=== PATIENT | male | born 1975 | race Caucasian/White ===

== ENCOUNTER 2022-12-23 02:46 | Outpatient (RCR) | payer BC, SELFPAY ==
[2022-12-04] MEDS: Normal Saline Flush 10 ML SYR IVP (10:42)
[2022-12-04 11:04] LABS: HCT 37.4 % (40.0-50.0); HGB 12.6 g/dL (13.5-17.5); MCH 30.4 pg (27.0-33.0); MCHC 33.7 % (32.0-36.0); MCV 90 fL (80-95); MPV 10.2 fL (8.0-11.0); Platelet Count 132 10^3/uL (130-400); RBC 4.15 10^6/uL (4.36-5.78); RDW 14.6 % (11.8-14.1); RDW-SD 48.1 fL; WBC 9.15 10^3/uL (4.4-10.8)
[2022-12-04 11:17] LABS: ALT 30 U/L (16-63); AST 15 U/L (15-37); Albumin 3.7 g/dL (3.4-5.0); Alkaline Phosphatase 99 U/L (46-116); Anion Gap 7.9 mmol/L (3-11); BUN 36 mg/dL (7-18); Bilirubin, Total 0.6 mg/dL (0.2-1.0); CO2 28.1 mmol/L (21.0-32.0); CREATININE 1.2 mg/dL (0.70-1.30); Calcium 8.2 mg/dL (8.5-10.1); Chloride 103 mmol/L (98-107); Estimated GFR 75.06 (mL/min/1.73m2); Glucose 156 mg/dL (74-106); LDH 468 U/L (85-227); Potassium 3.5 mmol/L (3.5-5.1); Sodium 139 mmol/L (136-145); Total Protein 6.8 g/dL (6.4-8.2)
[2022-12-04 11:23] LABS: Absolute Basophil Count 0.18 10^3/uL (0.0-0.2); Absolute Lymphocyte Count 3.02 10^3/uL (1.2-3.4); Absolute Monocyte Count 0.64 10^3/uL (0.1-0.8); Absolute Neutrophil Count 5.31 10^3/uL (1.2-6.7); Atypical Lymphocytes % 2; Diff Comment Manual Differential; RBC Morphology Normal
[2022-12-09] MEDS: Normal Saline Flush 10 ML SYR IVP (07:14)
[2022-12-09 07:57] LABS: Abs Immature Grans 0.06 10^3/uL (0.0-0.06); Absolute Basophil Count 0.05 10^3/uL (0.0-0.2); Absolute Lymphocyte Count 0.03 10^3/uL (1.2-3.4); Absolute Monocyte Count 0.19 10^3/uL (0.1-0.8); Absolute Neutrophil Count 6.52 10^3/uL (1.2-6.7); Basophils % 0.7; HCT 33.4 % (40.0-50.0); HGB 11.3 g/dL (13.5-17.5); Immature Grans % 0.9; Lymphocytes % 0.4; MCH 30.6 pg (27.0-33.0); MCHC 33.8 % (32.0-36.0); MCV 91 fL (80-95); MPV 9.9 fL (8.0-11.0); Monocytes % 2.8; Neutrophils % 95.2; Platelet Count 153 10^3/uL (130-400); RBC 3.69 10^6/uL (4.36-5.78); RDW 14.5 % (11.8-14.1); RDW-SD 47.8 fL; WBC 6.85 10^3/uL (4.4-10.8)
[2022-12-09 08:11] LABS: ALT 29 U/L (16-63); AST 18 U/L (15-37); Albumin 3.4 g/dL (3.4-5.0); Alkaline Phosphatase 70 U/L (46-116); Anion Gap 6.2 mmol/L (3-11); BUN 28 mg/dL (7-18); Bilirubin, Total 0.5 mg/dL (0.2-1.0); CO2 29.8 mmol/L (21.0-32.0); CREATININE 1.3 mg/dL (0.70-1.30); Calcium 8.5 mg/dL (8.5-10.1); Chloride 101 mmol/L (98-107); Estimated GFR 68.19 (mL/min/1.73m2); Glucose 114 mg/dL (74-106); LDH 309 U/L (85-227); Potassium 3.5 mmol/L (3.5-5.1); Sodium 137 mmol/L (136-145); Total Protein 6.7 g/dL (6.4-8.2)
[2022-12-11 16:41] LABS: CMV DNA Detect/Quant, P Undetected IU/mL (Undetected)
[2022-12-16] MEDS: Normal Saline Flush 10 ML SYR IVP (07:37)
[2022-12-16 07:50] LABS: Abs Immature Grans 0.08 10^3/uL (0.0-0.06); Absolute Basophil Count 0.03 10^3/uL (0.0-0.2); Absolute Lymphocyte Count 0.02 10^3/uL (1.2-3.4); Absolute Monocyte Count 0.07 10^3/uL (0.1-0.8); Absolute Neutrophil Count 6.35 10^3/uL (1.2-6.7); Basophils % 0.5; HCT 31.9 % (40.0-50.0); Immature Grans % 1.2; Lymphocytes % 0.3; MCHC 34.5 % (32.0-36.0); MCV 90 fL (80-95); MPV 8.7 fL (8.0-11.0); Monocytes % 1.1; Neutrophils % 96.9; Platelet Count 245 10^3/uL (130-400); RBC 3.55 10^6/uL (4.36-5.78); RDW 14.2 % (11.8-14.1); RDW-SD 46.5 fL; WBC 6.55 10^3/uL (4.4-10.8)
[2022-12-16 08:08] LABS: ALT 29 U/L (16-63); AST 14 U/L (15-37); Albumin 3.4 g/dL (3.4-5.0); Alkaline Phosphatase 91 U/L (46-116); Anion Gap 7.6 mmol/L (3-11); BUN 25 mg/dL (7-18); Bilirubin, Total 0.3 mg/dL (0.2-1.0); CO2 30.4 mmol/L (21.0-32.0); CREATININE 1.4 mg/dL (0.70-1.30); Calcium 7.7 mg/dL (8.5-10.1); Chloride 104 mmol/L (98-107); Estimated GFR 62.39 (mL/min/1.73m2); Glucose 187 mg/dL (74-106); LDH 237 U/L (85-227); Potassium 3.6 mmol/L (3.5-5.1); Sodium 142 mmol/L (136-145); Total Protein 6.7 g/dL (6.4-8.2)
[2022-12-17 20:59] LABS: CMV DNA Detect/Quant, P Undetected IU/mL (Undetected)
[2022-12-23] MEDS: Normal Saline Flush 10 ML SYR IVP (07:32)
[2022-12-23 08:01] LABS: Abs Immature Grans 0.37 10^3/uL (0.0-0.06); Absolute Basophil Count 0.03 10^3/uL (0.0-0.2); Absolute Lymphocyte Count 0.01 10^3/uL (1.2-3.4); Absolute Monocyte Count 0.04 10^3/uL (0.1-0.8); Absolute Neutrophil Count 6.48 10^3/uL (1.2-6.7); Basophils % 0.4; HCT 34.7 % (40.0-50.0); HGB 11.9 g/dL (13.5-17.5); Immature Grans % 5.3; Lymphocytes % 0.1; MCH 30.7 pg (27.0-33.0); MCHC 34.3 % (32.0-36.0); MCV 89 fL (80-95); MPV 9.3 fL (8.0-11.0); Monocytes % 0.6; Neutrophils % 93.6; Platelet Count 210 10^3/uL (130-400); RBC 3.88 10^6/uL (4.36-5.78); RDW 13.9 % (11.8-14.1); WBC 6.93 10^3/uL (4.4-10.8)
[2022-12-23 08:23] LABS: Diff Comment Diff Reviewed; RBC Morphology Normal
[2022-12-23 08:25] LABS: ALT 28 U/L (16-63); AST 14 U/L (15-37); Albumin 3.5 g/dL (3.4-5.0); Alkaline Phosphatase 67 U/L (46-116); Anion Gap 8.5 mmol/L (3-11); BUN 25 mg/dL (7-18); Bilirubin, Total 0.4 mg/dL (0.2-1.0); CO2 31.5 mmol/L (21.0-32.0); CREATININE 1.2 mg/dL (0.70-1.30); Calcium 8.6 mg/dL (8.5-10.1); Chloride 101 mmol/L (98-107); Estimated GFR 75.06 (mL/min/1.73m2); Glucose 103 mg/dL (74-106); LDH 241 U/L (85-227); Potassium 3.8 mmol/L (3.5-5.1); Sodium 141 mmol/L (136-145); Total Protein 6.9 g/dL (6.4-8.2)
[2022-12-25 14:09] LABS: CMV DNA Detect/Quant, P Undetected IU/mL (Undetected)
== END 2022-12-27 23:59 | disposition home or self-care (01) ==
LOC: INF 02:46
PROVIDERS: PCP Neuromusculoskeletal Medicine & OMM; Visit Provider Internal Medicine Hematology & Oncology
DX: C91.60 Prolymphocytic leukemia of T-cell type not having achieved remission (principal); Z45.2 Encounter for adjustment and management of vascular access device
CPT/HCPCS: 36591; 80053; 83615; 85025; 87496; 87497

== ENCOUNTER 2023-01-27 01:58 | Outpatient (RCR) | payer MEDICARE, BC, SELFPAY ==
[2022-12-30] MEDS: Normal Saline Flush 10 ML SYR IVP (07:37)
[2022-12-30 07:43] LABS: Abs Immature Grans 0.32 10^3/uL (0.0-0.06); Absolute Basophil Count 0.02 10^3/uL (0.0-0.2); Absolute Lymphocyte Count 0.02 10^3/uL (1.2-3.4); Absolute Monocyte Count 0.03 10^3/uL (0.1-0.8); Absolute Neutrophil Count 7.02 10^3/uL (1.2-6.7); Basophils % 0.3; HCT 33.4 % (40.0-50.0); HGB 11.7 g/dL (13.5-17.5); Immature Grans % 4.3; Lymphocytes % 0.3; MCV 88 fL (80-95); MPV 8.7 fL (8.0-11.0); Monocytes % 0.4; Neutrophils % 94.7; Platelet Count 136 10^3/uL (130-400); RBC 3.78 10^6/uL (4.36-5.78); RDW 13.6 % (11.8-14.1); RDW-SD 43.8 fL; WBC 7.41 10^3/uL (4.4-10.8)
[2022-12-30 08:06] LABS: ALT 28 U/L (16-63); AST 15 U/L (15-37); Albumin 3.5 g/dL (3.4-5.0); Alkaline Phosphatase 76 U/L (46-116); Anion Gap 6.9 mmol/L (3-11); BUN 28 mg/dL (7-18); Bilirubin, Total 0.4 mg/dL (0.2-1.0); CO2 31.1 mmol/L (21.0-32.0); CREATININE 1.4 mg/dL (0.70-1.30); Calcium 9.5 mg/dL (8.5-10.1); Chloride 103 mmol/L (98-107); Estimated GFR 62.39 (mL/min/1.73m2); Glucose 136 mg/dL (74-106); LDH 250 U/L (85-227); Potassium 3.7 mmol/L (3.5-5.1); Sodium 141 mmol/L (136-145); Total Protein 6.9 g/dL (6.4-8.2)
[2022-12-30 12:37] LABS: Hemoglobin A1C 6.9 % (<5.7)
[2023-01-03 12:38] LABS: CMV DNA Detect/Quant, P Undetected IU/mL (Undetected)
[2023-01-06 08:08] LABS: Abs Immature Grans 0.27 10^3/uL (0.0-0.06); Absolute Basophil Count 0.02 10^3/uL (0.0-0.2); Absolute Lymphocyte Count 0.03 10^3/uL (1.2-3.4); Absolute Monocyte Count 0.02 10^3/uL (0.1-0.8); Absolute Neutrophil Count 6.76 10^3/uL (1.2-6.7); Basophils % 0.3; HCT 34.2 % (40.0-50.0); HGB 11.6 g/dL (13.5-17.5); Immature Grans % 3.8; Lymphocytes % 0.4; MCH 30.4 pg (27.0-33.0); MCHC 33.9 % (32.0-36.0); MCV 90 fL (80-95); MPV 8.8 fL (8.0-11.0); Monocytes % 0.3; Neutrophils % 95.2; Platelet Count 114 10^3/uL (130-400); RBC 3.82 10^6/uL (4.36-5.78); RDW 13.6 % (11.8-14.1); RDW-SD 44.4 fL
[2023-01-06] MEDS: Normal Saline Flush 10 ML SYR IVP (08:24)
[2023-01-06 08:25] LABS: ALT 29 U/L (16-63); AST 14 U/L (15-37); Albumin 3.7 g/dL (3.4-5.0); Alkaline Phosphatase 66 U/L (46-116); Anion Gap 7.9 mmol/L (3-11); BUN 32 mg/dL (7-18); Bilirubin, Total 0.6 mg/dL (0.2-1.0); CO2 31.1 mmol/L (21.0-32.0); CREATININE 1.4 mg/dL (0.70-1.30); Calcium 9.2 mg/dL (8.5-10.1); Chloride 102 mmol/L (98-107); Estimated GFR 62.39 (mL/min/1.73m2); Glucose 130 mg/dL (74-106); LDH 262 U/L (85-227); Potassium 3.7 mmol/L (3.5-5.1); Sodium 141 mmol/L (136-145)
[2023-01-09 20:10] LABS: CMV DNA Detect/Quant, P Undetected IU/mL (Undetected)
[2023-01-13] MEDS: Normal Saline Flush 10 ML SYR IVP (08:02)
[2023-01-13 08:04] LABS: Abs Immature Grans 0.15 10^3/uL (0.0-0.06); Absolute Basophil Count 0.01 10^3/uL (0.0-0.2); Absolute Lymphocyte Count 0.02 10^3/uL (1.2-3.4); Absolute Monocyte Count 0.02 10^3/uL (0.1-0.8); Absolute Neutrophil Count 5.58 10^3/uL (1.2-6.7); Basophils % 0.2; HCT 32.5 % (40.0-50.0); HGB 11.1 g/dL (13.5-17.5); Immature Grans % 2.6; Lymphocytes % 0.3; MCH 30.5 pg (27.0-33.0); MCHC 34.2 % (32.0-36.0); MCV 89 fL (80-95); MPV 8.7 fL (8.0-11.0); Monocytes % 0.3; Neutrophils % 96.6; Platelet Count 125 10^3/uL (130-400); RBC 3.64 10^6/uL (4.36-5.78); RDW 13.7 % (11.8-14.1); RDW-SD 44.3 fL; WBC 5.78 10^3/uL (4.4-10.8)
[2023-01-13 08:30] LABS: ALT 34 U/L (16-63); AST 14 U/L (15-37); Albumin 3.6 g/dL (3.4-5.0); Alkaline Phosphatase 54 U/L (46-116); Anion Gap 6.7 mmol/L (3-11); BUN 27 mg/dL (7-18); Bilirubin, Total 0.5 mg/dL (0.2-1.0); CO2 31.3 mmol/L (21.0-32.0); CREATININE 1.3 mg/dL (0.70-1.30); Calcium 8.5 mg/dL (8.5-10.1); Chloride 104 mmol/L (98-107); Estimated GFR 68.19 (mL/min/1.73m2); Glucose 114 mg/dL (74-106); LDH 260 U/L (85-227); Potassium 3.7 mmol/L (3.5-5.1); Sodium 142 mmol/L (136-145); Total Protein 6.9 g/dL (6.4-8.2)
[2023-01-15 14:04] LABS: CMV DNA Detect/Quant, P Undetected IU/mL (Undetected)
[2023-01-20 09:20] LABS: ALT 38 U/L (16-63); AST 16 U/L (15-37); Albumin 3.4 g/dL (3.4-5.0); Alkaline Phosphatase 67 U/L (46-116); Anion Gap 8.4 mmol/L (3-11); BUN 27 mg/dL (7-18); Bilirubin, Total 0.4 mg/dL (0.2-1.0); CO2 29.6 mmol/L (21.0-32.0); CREATININE 1.2 mg/dL (0.70-1.30); Calcium 7.9 mg/dL (8.5-10.1); Chloride 103 mmol/L (98-107); Estimated GFR 75.06 (mL/min/1.73m2); Glucose 151 mg/dL (74-106); LDH 292 U/L (85-227); Potassium 3.5 mmol/L (3.5-5.1); Sodium 141 mmol/L (136-145); Total Protein 6.5 g/dL (6.4-8.2)
[2023-01-20 09:28] LABS: Abs Immature Grans 0.09 10^3/uL (0.0-0.06); Absolute Basophil Count 0.01 10^3/uL (0.0-0.2); Absolute Lymphocyte Count 0.01 10^3/uL (1.2-3.4); Absolute Monocyte Count 0.01 10^3/uL (0.1-0.8); Absolute Neutrophil Count 3.56 10^3/uL (1.2-6.7); Basophils % 0.3; HCT 30.5 % (40.0-50.0); HGB 10.6 g/dL (13.5-17.5); Immature Grans % 2.4; Lymphocytes % 0.3; MCH 31.3 pg (27.0-33.0); MCHC 34.8 % (32.0-36.0); MCV 90 fL (80-95); MPV 8.5 fL (8.0-11.0); Monocytes % 0.3; Neutrophils % 96.7; Platelet Count 122 10^3/uL (130-400); RBC 3.39 10^6/uL (4.36-5.78); RDW 14.6 % (11.8-14.1); RDW-SD 46.9 fL; WBC 3.68 10^3/uL (4.4-10.8)
[2023-01-22 13:55] LABS: CMV DNA Detect/Quant, P Undetected IU/mL (Undetected)
[2023-01-27] MEDS: Normal Saline Flush 10 ML SYR IVP (08:17)
[2023-01-27 08:32] LABS: HCT 32.1 % (40.0-50.0); HGB 11.1 g/dL (13.5-17.5); MCH 31.3 pg (27.0-33.0); MCHC 34.6 % (32.0-36.0); MCV 90 fL (80-95); MPV 8.8 fL (8.0-11.0); Platelet Count 105 10^3/uL (130-400); RBC 3.55 10^6/uL (4.36-5.78); RDW 14.6 % (11.8-14.1); RDW-SD 47.5 fL
[2023-01-27 08:53] LABS: ALT 41 U/L (16-63); AST 20 U/L (15-37); Albumin 3.5 g/dL (3.4-5.0); Alkaline Phosphatase 59 U/L (46-116); Anion Gap 8.4 mmol/L (3-11); BUN 32 mg/dL (7-18); Bilirubin, Total 0.5 mg/dL (0.2-1.0); CO2 29.6 mmol/L (21.0-32.0); CREATININE 1.2 mg/dL (0.70-1.30); Calcium 8.2 mg/dL (8.5-10.1); Chloride 102 mmol/L (98-107); Estimated GFR 75.06 (mL/min/1.73m2); Glucose 187 mg/dL (74-106); Potassium 3.2 mmol/L (3.5-5.1); Sodium 140 mmol/L (136-145); Total Protein 6.8 g/dL (6.4-8.2)
[2023-01-27 09:15] LABS: LDH 323 U/L (85-227)
[2023-01-27 09:29] LABS: Absolute Neutrophil Count 2.91 10^3/uL (1.2-6.7); Bands % 3
[2023-01-27 09:30] LABS: Atypical Lymphocytes % 0; Diff Comment Manual Differential; Metamyelocytes % 1; Myelocytes % 2
[2023-01-27 09:31] LABS: Basophilic Stippling Present
[2023-01-29 15:12] LABS: CMV DNA Detect/Quant, P Undetected IU/mL (Undetected)
== END 2023-01-27 23:59 | disposition home or self-care (01) ==
LOC: INF 01:58
PROVIDERS: PCP Neuromusculoskeletal Medicine & OMM; Visit Provider Internal Medicine Hematology & Oncology
DX: Z45.2 Encounter for adjustment and management of vascular access device (principal); C91.60 Prolymphocytic leukemia of T-cell type not having achieved remission; R73.03 Prediabetes
CPT/HCPCS: 36591; 80053; 83036; 83615; 85025; 87496; 87497

== ENCOUNTER 2023-02-03 02:23 | Outpatient (RCR) | payer MEDICARE, BC, SELFPAY ==
[2023-02-03 09:34] LABS: Abs Immature Grans 0.11 10^3/uL (0.0-0.06); HCT 31.6 % (40.0-50.0); MCH 31.2 pg (27.0-33.0); MCHC 34.8 % (32.0-36.0); MCV 90 fL (80-95); MPV 8.5 fL (8.0-11.0); Platelet Count 120 10^3/uL (130-400); RBC 3.53 10^6/uL (4.36-5.78); RDW-SD 47.8 fL
[2023-02-03 09:52] LABS: ALT 39 U/L (16-63); AST 15 U/L (15-37); Albumin 3.5 g/dL (3.4-5.0); Alkaline Phosphatase 62 U/L (46-116); Anion Gap 6.6 mmol/L (3-11); BUN 33 mg/dL (7-18); Bilirubin, Total 0.4 mg/dL (0.2-1.0); CO2 32.4 mmol/L (21.0-32.0); CREATININE 1.2 mg/dL (0.70-1.30); Calcium 9.7 mg/dL (8.5-10.1); Chloride 102 mmol/L (98-107); Estimated GFR 75.06 (mL/min/1.73m2); Glucose 150 mg/dL (74-106); LDH 347 U/L (85-227); Potassium 3.7 mmol/L (3.5-5.1); Sodium 141 mmol/L (136-145); Total Protein 6.8 g/dL (6.4-8.2)
[2023-02-03 10:04] LABS: Absolute Neutrophil Count 1.86 10^3/uL (1.2-6.7); Atypical Lymphocytes % 3; Bands % 0; Metamyelocytes % 1; Myelocytes % 1
[2023-02-03 10:05] LABS: Diff Comment Manual Differential
[2023-02-03] MEDS: Normal Saline Flush 10 ML SYR IVP (10:30)
[2023-02-05 13:47] LABS: CMV DNA Detect/Quant, P Undetected IU/mL (Undetected)
== END 2023-02-27 23:59 | disposition home or self-care (01) ==
LOC: INF 02:23
PROVIDERS: PCP Neuromusculoskeletal Medicine & OMM; Visit Provider Internal Medicine Hematology & Oncology
DX: C91.60 Prolymphocytic leukemia of T-cell type not having achieved remission (principal); Z45.2 Encounter for adjustment and management of vascular access device
CPT/HCPCS: 36591; 80053; 83615; 85025; 87497

== ENCOUNTER 2023-03-10 01:41 | Outpatient (RCR) | payer MEDICARE, BC, SELFPAY ==
[2023-03-10 07:31] LABS: Abs Immature Grans 0.01 10^3/uL (0.0-0.06); HCT 22.9 % (40.0-50.0); HGB 8.1 g/dL (13.5-17.5); MCH 32.7 pg (27.0-33.0); MCHC 35.4 % (32.0-36.0); MCV 92 fL (80-95); MPV 10.4 fL (8.0-11.0); Platelet Count 105 10^3/uL (130-400); RBC 2.48 10^6/uL (4.36-5.78); RDW 18.4 % (11.8-14.1); RDW-SD 54.9 fL
[2023-03-10] MEDS: Normal Saline Flush 10 ML SYR IVP (07:40)
[2023-03-10] MEDS: Heparin 500 UNITS/5 ML SYRINGE IV (07:41)
[2023-03-10 08:11] LABS: Absolute Basophil Count 0.01 10^3/uL (0.0-0.2); Absolute Eosinophil Count 0.01 10^3/uL (0.0-0.7); Absolute Lymphocyte Count 0.02 10^3/uL (1.2-3.4); Absolute Monocyte Count 0.08 10^3/uL (0.1-0.8); Absolute Neutrophil Count 0.83 10^3/uL (1.2-6.7); Bands % 1; Diff Comment Manual Differential; Metamyelocytes % 1; Myelocytes % 1
[2023-03-10 08:12] LABS: Hypochromasia 2+; Polychromasia Present
[2023-03-10 08:13] LABS: Poikilocytes 2+
[2023-03-10 08:15] LABS: WBC 0.96 10^3/uL (4.4-10.8)
== END 2023-03-29 23:59 | disposition home or self-care (01) ==
LOC: INF 01:41
PROVIDERS: Internal Medicine Hematology & Oncology; PCP Neuromusculoskeletal Medicine & OMM; Visit Provider Internal Medicine Hematology & Oncology
DX: C91.60 Prolymphocytic leukemia of T-cell type not having achieved remission (principal); D61.818 Other pancytopenia
CPT/HCPCS: 36415; 36591; 86900; 86901; 85025

== ENCOUNTER 2023-04-07 04:20 | Outpatient (RCR) | payer MEDICARE, BC, SELFPAY ==
[2023-04-07] MEDS: Normal Saline Flush 10 ML SYR IVP (07:44)
[2023-04-07 07:57] LABS: Abs Immature Grans 0.64 10^3/uL (0.0-0.06); Absolute Basophil Count 0.05 10^3/uL (0.0-0.2); Absolute Lymphocyte Count 0.01 10^3/uL (1.2-3.4); Absolute Monocyte Count 0.63 10^3/uL (0.1-0.8); Absolute Neutrophil Count 2.26 10^3/uL (1.2-6.7); Basophils % 1.4; HCT 25.9 % (40.0-50.0); HGB 9.2 g/dL (13.5-17.5); Immature Grans % 17.8; Lymphocytes % 0.3; MCH 30.8 pg (27.0-33.0); MCHC 35.5 % (32.0-36.0); MCV 87 fL (80-95); MPV 9.6 fL (8.0-11.0); Monocytes % 17.5; Platelet Count 87 10^3/uL (130-400); RBC 2.99 10^6/uL (4.36-5.78); RDW-SD 42.7 fL; WBC 3.59 10^3/uL (4.4-10.8)
[2023-04-07 08:10] LABS: ALT 23 U/L (16-63); AST 17 U/L (15-37); Albumin 3.8 g/dL (3.4-5.0); Alkaline Phosphatase 79 U/L (46-116); Anion Gap 11.9 mmol/L (3-11); BUN 23 mg/dL (7-18); Bilirubin, Total 0.3 mg/dL (0.2-1.0); CO2 26.1 mmol/L (21.0-32.0); CREATININE 1.6 mg/dL (0.70-1.30); Chloride 101 mmol/L (98-107); Estimated GFR 53.15 (mL/min/1.73m2); Glucose 178 mg/dL (74-106); Magnesium 1.1 mg/dL (1.8-2.4); Potassium 4.1 mmol/L (3.5-5.1); Sodium 139 mmol/L (136-145); Total Protein 7.3 g/dL (6.4-8.2)
[2023-04-07] MEDS: Heparin 500 UNITS/5 ML SYRINGE IV (08:17)
== END 2023-04-29 23:59 | disposition home or self-care (01) ==
LOC: INF 04:20
PROVIDERS: PCP Neuromusculoskeletal Medicine & OMM; Visit Provider Internal Medicine Hematology & Oncology
DX: C91.60 Prolymphocytic leukemia of T-cell type not having achieved remission (principal); Z45.2 Encounter for adjustment and management of vascular access device
CPT/HCPCS: 36591; 80053; 86850; 86900; 86901; 83735; 85025

== ENCOUNTER 2024-09-08 04:42 | Outpatient (CLI) | payer MEDICARE, BC, SELFPAY ==
[2024-09-08 13:07] LABS: Abs Immature Grans 0.03 10^3/uL (0.0-0.06); Absolute Basophil Count 0.03 10^3/uL (0.0-0.2); Absolute Eosinophil Count 0.18 10^3/uL (0.0-0.7); Absolute Lymphocyte Count 1.38 10^3/uL (1.2-3.4); Absolute Monocyte Count 0.43 10^3/uL (0.1-0.8); Basophils % 0.8 %; Eosinophils % 4.6 %; HCT 38.1 % (40.0-50.0); Immature Grans % 0.8 %; Lymphocytes % 34.9 %; MCHC 34.1 % (32.0-36.0); MCV 91 fL (80-95); MPV 8.7 fL (8.0-11.0); Monocytes % 10.9 %; Platelet Count 177 10^3/uL (130-400); RBC 4.19 10^6/uL (4.36-5.78); RDW 13.1 % (11.8-14.1); RDW-SD 42.9 fL; WBC 3.95 10^3/uL (4.4-10.8)
[2024-09-08 13:20] LABS: ALT 30 U/L (16-63); AST 20 U/L (15-37); Albumin 4.4 g/dL (3.4-5.0); Alkaline Phosphatase 70 U/L (46-116); Anion Gap 6.4 mmol/L (3-11); BUN 19 mg/dL (7-18); Bilirubin, Total 0.4 mg/dL (0.2-1.0); CO2 31.6 mmol/L (21.0-32.0); CREATININE 1.4 mg/dL (0.70-1.30); Calcium 9.1 mg/dL (8.5-10.1); Chloride 106 mmol/L (98-107); Glucose 106 mg/dL (74-106); LDH 151 U/L (85-227); Sodium 144 mmol/L (136-145); Total Protein 8.1 g/dL (6.4-8.2)
[2024-09-09 11:16] LABS: IgA 114 mg/dL (85-499); IgG 1011 mg/dL (610-1616); IgM 108 mg/dL (35-242); Kappa Free Light Chain 2.69 mg/dL (0.33-1.94); Lambda Free Light Chain 1.93 mg/dL (0.57-2.63)
== END 2024-09-08 04:43 | disposition home or self-care (01) ==
LOC: LBO 04:43
PROVIDERS: PCP Neuromusculoskeletal Medicine & OMM; Visit Provider Nurse Practitioner Adult Health
DX: C91.60 Prolymphocytic leukemia of T-cell type not having achieved remission (principal); Z94.81 Bone marrow transplant status
CPT/HCPCS: 36415; 80053; 82784; 83615; 83883; 85025